=== PATIENT | female | born 1980 ===

== ENCOUNTER → 2018-12-04 | Outpatient (CLI) | payer MEDICAID ==
[~2018-12-04] VITALS: Ht 1 cm; Wt 0.5 kg
[~2018-12-04] MED LIST: ADENOSINE 50 MG in GIVE UN-DILUTED 0 ML IV ONE; ADENOSINE 90 MG/30 ML INJ IV ONE
== END | disposition home or self-care (01) ==
LOC: Rad HDHVI 12:34
PROVIDERS: ATTEND Internal Medicine Cardiovascular Disease
DX: Z01.810 Encounter for preprocedural cardiovascular examination (principal); I08.8 Other rheumatic multiple valve diseases; M06.9 Rheumatoid arthritis, unspecified; M79.7 Fibromyalgia; I20.0 Unstable angina
CPT/HCPCS: 78452; 93005; 93306; 96374; 96375; A9500; J0153